=== PATIENT | female | born 1930 | race Caucasian/White ===

== ENCOUNTER 2017-09-08 13:15 | Inpatient (IN) | payer MEDICARE, MEDICAID ==
[~2017-09-08] VITALS: Ht 157.5 cm; Wt 101.2 kg
[2017-09-08] MEDS ORDERED: ONDANSETRON HCL/PF 4 MG/2 ML VIAL ONE ×2 (13:41→14:52)
[2017-09-08 13:50] LABS: BASOPHILS # (AUTO) 0.1 /CMM (0.0-0.2); BASOPHILS % (AUTO) 0.5 % (0.0-2.0); EOSINOPHILS % (AUTO) 0.3 % (0.0-6.0); HEMATOCRIT 34 % (33-45); LYMPHOCYTES # (AUTO) 1.7 /CMM (0.8-4.8); LYMPHOCYTES % (AUTO) 9.5 % (20.0-44.0); MEAN CORPUSCULAR HEMOGLOBIN 34 PG (26.0-33.0); MEAN CORPUSCULAR HGB CONC 35 g/dl (31.0-36.0); MEAN CORPUSCULAR VOLUME 97 fL (82-100); MONOCYTES # (AUTO) 0.9 /CMM (0.1-1.30); MONOCYTES % (AUTO) 4.8 % (2.0-12.0); NEUTROPHILS # (AUTO) 15.1 /CMM (1.8-8.9); NEUTROPHILS % (AUTO) 84.9 % (43.0-81.0); PLATELET COUNT (AUTO) 242 /CMM (150-450); RDW COEFFICIENT OF VARIATION 14.4 (11.5-15.0); RED BLOOD CELL COUNT(AUTO) 3.51 MIL/uL (4.0-5.2); WHITE BLOOD COUNT (AUTO) 17.9 K/uL (4.3-11.0)
[2017-09-08 13:59] LABS: CALCIUM, SERUM 9.6 mg/dL (8.5-10.1); CARBON DIOXIDE 27 mmol/L (21-32); CHLORIDE 105 mmol/L (98-107); GLUCOSE 130 mg/dL (74-106); POTASSIUM 4.5 mmol/L (3.5-5.1); SODIUM SERUM 138 mmol/L (136-145); UREA NITROGEN, BLOOD 25 mg/dL (7-18)
[2017-09-08] MEDS ORDERED: ONDANSETRON HCL/PF 4 MG/2 ML VIAL IVP ONE (14:00)
[2017-09-08 14:08] LABS: TROPONIN I < 0.017 ng/mL (0.00-0.056)
[2017-09-08] MEDS ORDERED: MORPHINE SULFATE INJ 4 MG/ML DISP.SYRIN ONE (14:48)
[2017-09-08] MEDS ORDERED: ONDANSETRON HCL/PF - ER 4 MG/2 ML VIAL IV ONE (15:00)
[2017-09-08] MEDS ORDERED: MORPHINE SULFATE INJ 2 MG/ML DISP.SYRIN IV ONE (15:00)
[2017-09-08] MEDS ORDERED: IV NS 0.9% 500 ML IV ONE (15:00)
[2017-09-08 15:30] LABS: ALBUMIN 3.5 g/dL (3.4-5.0); BILIRUBIN,DIRECT 0.1 mg/dL (0.0-0.2); BILIRUBIN,TOTAL 0.3 mg/dL (0.2-1.0); TOTAL PROTEIN, SERUM 7.2 g/dL (6.4-8.2)
[2017-09-08] MEDS ORDERED: HYDROMORPHONE INJ 2 MG/ML DISP.SYRIN ONE ×2 (15:46→16:20)
[2017-09-08] MEDS ORDERED: ONDANSETRON HCL/PF 4 MG/2 ML VIAL IVP PRN (16:00)
[2017-09-08] MEDS ORDERED: ACETAMINOPHEN 325 MG TABLET PO PRN (16:00)
[2017-09-08] MEDS ORDERED: hydrALAZINE HCL IV 20 MG VIAL IV PRN (16:00)
[2017-09-08] MEDS ORDERED: IV NS 0.9% 1,000 ML IV ONE (16:00)
[2017-09-08] MEDS: HYDROMORPHONE 1 MG/1 ML DISP.SYRIN IV ONE ×2 (16:18→16:26)
[2017-09-08] MEDS ORDERED: ICOS1CAP PO (16:29)
[2017-09-08] MEDS ORDERED: ATOR10TA PO (16:29)
[2017-09-08] MEDS ORDERED: TRAM50TA2 PO (16:29)
[2017-09-08] MEDS ORDERED: UMEC1BLS IH (16:29)
[2017-09-08] MEDS ORDERED: MELO-107 PO (16:29)
[2017-09-08] MEDS ORDERED: ASPI-1152 PO (16:29)
[2017-09-08] MEDS ORDERED: DULO30CA2 PO (16:29)
[2017-09-08] MEDS ORDERED: NEBI5TAB8 PO (16:29)
[2017-09-08] MEDS ORDERED: SPIR25TA6 PO (16:29)
[2017-09-08] MEDS ORDERED: OLME1TAB16 PO (16:29)
[2017-09-08] MEDS ORDERED: PREG75CA PO (16:29)
[2017-09-08] MEDS ORDERED: ERGO500014 PO (16:29)
[2017-09-08 17:30] VITALS: BP 166/82
[2017-09-08] MEDS: IV LR 1000 ML 1,000 ML IV PRN (17:35)
[2017-09-08] MEDS: PANTOPRAZOLE 40 MG VIAL IV SCH (17:38)
[2017-09-08] MEDS: MORPHINE SULFATE INJ 4 MG/ML DISP.SYRIN IV PRN ×2 (17:39→23:34)
[2017-09-08] MEDS ORDERED: DEXTROSE 50%-WATER 50 ML DISP.SYRIN IV PRN (18:00)
[2017-09-08 20:00] VITALS: BP 149/88
[2017-09-08] MEDS: BLOOD SUGAR DIAGNOSTIC 1 EACH STRIP IN SCH (21:44)
[2017-09-08] MEDS: MAGNESIUM HYDROXIDE 30 ML UDC PO PRN (21:44)
[2017-09-08] MEDS: INSULIN REGULAR, HUMAN 100 UNIT/ML 3 ML VIAL SQ PRN (21:49)
[2017-09-09] MEDS: IV LR 1000 ML 1,000 ML IV PRN ×2 (04:59→22:56)
[2017-09-09 06:28] LABS: APPEARANCE,URINE CLEAR (CLEAR); BILIRUBIN,URINE NEGATIVE (NEGATIVE); BLOOD, URINE TRACE-INTA Ery/uL (NEGATIVE); COLOR,URINE YELLOW (YELLOW); KETONES,URINE NEGATIVE (NEGATIVE); LEUKOCYTE ESTERASE ,URINE TRACE (NEGATIVE); NITRITE, URINE NEGATIVE (NEGATIVE); PH,URINE 5.5 (5.0-8.0); PROTEIN,URINE TRACE mg/dl (NEGATIVE); UGLUCOSE NEGATIVE (NEGATIVE); UROBILINOGEN,URINE 0.2 EU/dL (0.2)
[2017-09-09 06:30] LABS: HEMATOCRIT 35 % (33-45); HEMOGLOBIN 11.6 g/dL (11.5-14.8); LYMPHOCYTES # (AUTO) 0.9 /CMM (0.8-4.8); LYMPHOCYTES % (AUTO) 5.9 % (20.0-44.0); MEAN CORPUSCULAR HEMOGLOBIN 33 PG (26.0-33.0); MEAN CORPUSCULAR HGB CONC 33 g/dl (31.0-36.0); MEAN CORPUSCULAR VOLUME 100 fL (82-100); MONOCYTES # (AUTO) 0.8 /CMM (0.1-1.30); NEUTROPHILS # (AUTO) 14.3 /CMM (1.8-8.9); NEUTROPHILS % (AUTO) 89.1 % (43.0-81.0); PLATELET COUNT (AUTO) 255 /CMM (150-450); RDW COEFFICIENT OF VARIATION 15.7 (11.5-15.0); RED BLOOD CELL COUNT(AUTO) 3.52 MIL/uL (4.0-5.2); WHITE BLOOD COUNT (AUTO) 16.1 K/uL (4.3-11.0)
[2017-09-09 06:54] LABS: ALANINE AMINOTRANSFERASE 25 U/L (12-78); ALBUMIN 2.9 g/dL (3.4-5.0); ALKALINE PHOSPHATASE 56 U/L (46-116); ASPARTATE AMINOTRANSFERASE 18 U/L (15-37); BILIRUBIN,DIRECT 0.1 mg/dL (0.0-0.2); BILIRUBIN,TOTAL 0.4 mg/dL (0.2-1.0); CARBON DIOXIDE 28 mmol/L (21-32); CHLORIDE 105 mmol/L (98-107); CREATININE 0.9 mg/dL (0.6-1.3); GLUCOSE 122 mg/dL (74-106); MAGNESIUM 1.8 mg/dL (1.8-2.4); POTASSIUM 4.3 mmol/L (3.5-5.1); SODIUM SERUM 139 mmol/L (136-145); TOTAL PROTEIN, SERUM 6.5 g/dL (6.4-8.2); UREA NITROGEN, BLOOD 26 mg/dL (7-18)
[2017-09-09] MEDS: BLOOD SUGAR DIAGNOSTIC 1 EACH STRIP IN SCH ×4 (06:54→22:44)
[2017-09-09 07:12] LABS: CHOLESTEROL 187 mg/dL (<200); HDL CHOLESTEROL 38 mg/dL (40-60); LDL 132 mg/dL (0-99); THYROID STIMULATING HORMONE 1.083 uIU/mL (0.358-3.74); TRIGLYCERIDES 71 mg/dL (30-150)
[2017-09-09 07:31] LABS: BACTERIA,URINE Few /HPF (None Seen); SQUAMOUS EPITHELIAL CELL,UR Few /HPF (None Seen); WBC,URINE 21-50 /HPF (0-3)
[2017-09-09 08:00] VITALS: BP 145/71
[2017-09-09] MEDS: ASPIRIN EC 81 MG TABLET.DR PO SCH (08:35)
[2017-09-09] MEDS: DULOXETINE HCL 30 MG CAPSULE.DR PO SCH (08:36)
[2017-09-09] MEDS: PREGABALIN 25 MG CAPSULE PO SCH (08:36)
[2017-09-09] MEDS: ATORVASTATIN 10 MG TABLET PO SCH (08:37)
[2017-09-09 08:43] LABS: LIPASE 9624 U/L (73-393)
[2017-09-09] MEDS: MAGNESIUM HYDROXIDE 30 ML UDC PO PRN (08:43)
[2017-09-09] MEDS: PANTOPRAZOLE 40 MG VIAL IV SCH (08:58)
[2017-09-09] MEDS: MORPHINE SULFATE INJ 4 MG/ML DISP.SYRIN IV PRN (08:58)
[2017-09-09] MEDS ORDERED: ENOXAPARIN SODIUM 30 MG/0.3 ML DISP.SYRIN SQ SCH (09:30)
[2017-09-09] MEDS ORDERED: BISACODYL SUPP (10 MG) 10 MG/SUPP.RECT SUPP.RECT RC PRN (09:30)
[2017-09-09] MEDS ORDERED: MAGNESIUM CITRATE 296 ML BOTTLE PO PRN (09:30)
[2017-09-09 09:37] LABS: LYMPHOCYTES % (MANUAL) 3 % (16-48); MONOCYTES % (MANUAL) 4 % (0-11.0); NEUTROPHILS % (MANUAL) 93 (42-76)
[2017-09-09] MEDS ORDERED: CEFTRIAXONE 1 G in IV NS 0.9% 50 ML IV SCH (10:00)
[2017-09-09] MEDS: HYDROMORPHONE INJ 2 MG/ML DISP.SYRIN IV PRN (11:54)
[2017-09-09 16:00] VITALS: BP_SYST 88; BP_SYST 92; BP_DIAS 55; BP_DIAS 60
[2017-09-09] MEDS ORDERED: IV LR 1000 ML 1,000 ML IV ONE (16:00)
[2017-09-09 20:00] VITALS: BP 101/50
[2017-09-10] VITALS (12 sets, daily range): BP systolic 128–147; BP diastolic 49–72
[2017-09-10] MEDS: BLOOD SUGAR DIAGNOSTIC 1 EACH STRIP IN SCH ×4 (06:31→21:11)
[2017-09-10] MEDS: HYDROMORPHONE INJ 2 MG/ML DISP.SYRIN IV PRN ×2 (06:34→18:31)
[2017-09-10 09:08] LABS: HEMATOCRIT 35 % (33-45); HEMOGLOBIN 11.4 g/dL (11.5-14.8); LYMPHOCYTES # (AUTO) 0.9 /CMM (0.8-4.8); LYMPHOCYTES % (AUTO) 3.8 % (20.0-44.0); MEAN CORPUSCULAR HEMOGLOBIN 33 PG (26.0-33.0); MEAN CORPUSCULAR HGB CONC 33 g/dl (31.0-36.0); MEAN CORPUSCULAR VOLUME 100 fL (82-100); MONOCYTES # (AUTO) 1.2 /CMM (0.1-1.30); MONOCYTES % (AUTO) 4.8 % (2.0-12.0); NEUTROPHILS # (AUTO) 22.9 /CMM (1.8-8.9); NEUTROPHILS % (AUTO) 91.4 % (43.0-81.0); PLATELET COUNT (AUTO) 249 /CMM (150-450); RDW COEFFICIENT OF VARIATION 15.8 (11.5-15.0); RED BLOOD CELL COUNT(AUTO) 3.46 MIL/uL (4.0-5.2)
[2017-09-10 09:14] LABS: CALCIUM, SERUM 7.1 mg/dL (8.5-10.1); CARBON DIOXIDE 23 mmol/L (21-32); CHLORIDE 102 mmol/L (98-107); CREATININE 1.6 mg/dL (0.6-1.3); GLUCOSE 90 mg/dL (74-106); POTASSIUM 4.6 mmol/L (3.5-5.1); SODIUM SERUM 136 mmol/L (136-145); UREA NITROGEN, BLOOD 37 mg/dL (7-18)
[2017-09-10 09:47] LABS: BAND % (MANUAL) 2 % (0.0-5.0); LYMPHOCYTES % (MANUAL) 2 % (16-48); MONOCYTES % (MANUAL) 1 % (0-11.0); NEUTROPHILS % (MANUAL) 95 (42-76)
[2017-09-10] MEDS: ASPIRIN EC 81 MG TABLET.DR PO SCH (10:08)
[2017-09-10] MEDS: DULOXETINE HCL 30 MG CAPSULE.DR PO SCH (10:08)
[2017-09-10] MEDS: PREGABALIN 25 MG CAPSULE PO SCH (10:09)
[2017-09-10] MEDS: PANTOPRAZOLE 40 MG VIAL IV SCH (10:09)
[2017-09-10] MEDS: ATORVASTATIN 10 MG TABLET PO SCH (10:09)
[2017-09-10] MEDS ORDERED: IV NS 0.9% 500 ML IV ONE (10:30)
[2017-09-10] MEDS ORDERED: NOREPINEPHRINE 8 MG in IV D5W 500 ML IV PRN (10:30)
[2017-09-10 11:12] LABS: BASOPHILS % (AUTO) 0.1 % (0.0-2.0); HEMATOCRIT 34 % (33-45); HEMOGLOBIN 11.2 g/dL (11.5-14.8); LYMPHOCYTES # (AUTO) 0.8 /CMM (0.8-4.8); LYMPHOCYTES % (AUTO) 2.9 % (20.0-44.0); MEAN CORPUSCULAR HEMOGLOBIN 33 PG (26.0-33.0); MEAN CORPUSCULAR HGB CONC 33 g/dl (31.0-36.0); MEAN CORPUSCULAR VOLUME 100 fL (82-100); MONOCYTES # (AUTO) 0.9 /CMM (0.1-1.30); MONOCYTES % (AUTO) 3.6 % (2.0-12.0); NEUTROPHILS # (AUTO) 24.4 /CMM (1.8-8.9); NEUTROPHILS % (AUTO) 93.4 % (43.0-81.0); PLATELET COUNT (AUTO) 238 /CMM (150-450); RDW COEFFICIENT OF VARIATION 15.6 (11.5-15.0); RED BLOOD CELL COUNT(AUTO) 3.38 MIL/uL (4.0-5.2); WHITE BLOOD COUNT (AUTO) 26.1 K/uL (4.3-11.0)
[2017-09-10] MEDS ORDERED: FEE PK DOSING 1 MIN EA MC ONE (12:46)
[2017-09-10] MEDS: IV LR 1000 ML 1,000 ML IV PRN ×2 (12:47→21:58)
[2017-09-10 13:26] LABS: BAND % (MANUAL) 7 % (0.0-5.0); LYMPHOCYTES % (MANUAL) 4 % (16-48); MONOCYTES % (MANUAL) 4 % (0-11.0); NEUTROPHILS % (MANUAL) 85 (42-76)
[2017-09-10] MEDS: VANCOMYCIN 0.75 GM in IV D5W 250 ML IV SCH (13:58)
[2017-09-10] MEDS: MEROPENEM 500 MG in IV NS 0.9% 50 ML IV SCH (15:03)
[2017-09-10] MEDS: MORPHINE SULFATE INJ 4 MG/ML DISP.SYRIN IV PRN (20:26)
[2017-09-10] MEDS: INSULIN REGULAR, HUMAN 100 UNIT/ML 3 ML VIAL SQ PRN (21:11)
[2017-09-11] VITALS (25 sets, daily range): BP systolic 119–169; BP diastolic 53–78
[2017-09-11] MEDS: MEROPENEM 500 MG in IV NS 0.9% 50 ML IV SCH ×3 (02:44→21:44)
[2017-09-11] MEDS: MORPHINE SULFATE INJ 4 MG/ML DISP.SYRIN IV PRN ×2 (03:24→11:59)
[2017-09-11 05:18] LABS: BASOPHILS % (AUTO) 0.1 % (0.0-2.0); EOSINOPHILS % (AUTO) 0.1 % (0.0-6.0); HEMATOCRIT 31 % (33-45); HEMOGLOBIN 10.2 g/dL (11.5-14.8); LYMPHOCYTES # (AUTO) 0.7 /CMM (0.8-4.8); LYMPHOCYTES % (AUTO) 3.1 % (20.0-44.0); MEAN CORPUSCULAR HEMOGLOBIN 33 PG (26.0-33.0); MEAN CORPUSCULAR HGB CONC 33 g/dl (31.0-36.0); MEAN CORPUSCULAR VOLUME 100 fL (82-100); MONOCYTES # (AUTO) 1.2 /CMM (0.1-1.30); MONOCYTES % (AUTO) 5.3 % (2.0-12.0); NEUTROPHILS # (AUTO) 21.1 /CMM (1.8-8.9); NEUTROPHILS % (AUTO) 91.4 % (43.0-81.0); PLATELET COUNT (AUTO) 220 /CMM (150-450); RDW COEFFICIENT OF VARIATION 15.7 (11.5-15.0); RED BLOOD CELL COUNT(AUTO) 3.07 MIL/uL (4.0-5.2); WHITE BLOOD COUNT (AUTO) 23.1 K/uL (4.3-11.0)
[2017-09-11 05:45] LABS: CALCIUM, SERUM 6.6 mg/dL (8.5-10.1); CARBON DIOXIDE 25 mmol/L (21-32); CHLORIDE 102 mmol/L (98-107); CREATININE 1.5 mg/dL (0.6-1.3); GLUCOSE 92 mg/dL (74-106); LIPASE 560 U/L (73-393); MAGNESIUM 2.6 mg/dL (1.8-2.4); POTASSIUM 4.5 mmol/L (3.5-5.1); SODIUM SERUM 134 mmol/L (136-145); UREA NITROGEN, BLOOD 40 mg/dL (7-18)
[2017-09-11 06:02] LABS: THYROID STIMULATING HORMONE 0.864 uIU/mL (0.358-3.74)
[2017-09-11] MEDS: HYDROMORPHONE INJ 2 MG/ML DISP.SYRIN IV PRN ×2 (06:09→19:10)
[2017-09-11] MEDS: IV LR 1000 ML 1,000 ML IV PRN ×3 (06:16→23:50)
[2017-09-11] MEDS: BLOOD SUGAR DIAGNOSTIC 1 EACH STRIP IN SCH ×4 (08:15→21:57)
[2017-09-11] MEDS: PANTOPRAZOLE 40 MG VIAL IV SCH (08:16)
[2017-09-11] MEDS: PREGABALIN 25 MG CAPSULE PO SCH (08:16)
[2017-09-11] MEDS: ATORVASTATIN 10 MG TABLET PO SCH (08:16)
[2017-09-11] MEDS: DULOXETINE HCL 30 MG CAPSULE.DR PO SCH (08:16)
[2017-09-11] MEDS: ASPIRIN EC 81 MG TABLET.DR PO SCH (08:16)
[2017-09-11] MEDS ORDERED: ERGOCALCIFEROL (VITAMIN D 2) 50,000 UNIT CAPSULE PO SCH (09:00)
[2017-09-11] MEDS: VANCOMYCIN 0.75 GM in IV D5W 250 ML IV SCH (12:03)
[2017-09-12] VITALS (29 sets, daily range): BP systolic 112–179; BP diastolic 65–99
[2017-09-12] MEDS: MEROPENEM 500 MG in IV NS 0.9% 50 ML IV SCH ×2 (02:46→13:46)
[2017-09-12 04:41] LABS: BASOPHILS % (AUTO) 0.2 % (0.0-2.0); EOSINOPHILS % (AUTO) 0.1 % (0.0-6.0); HEMATOCRIT 32 % (33-45); HEMOGLOBIN 10.4 g/dL (11.5-14.8); LYMPHOCYTES # (AUTO) 0.6 /CMM (0.8-4.8); LYMPHOCYTES % (AUTO) 3.3 % (20.0-44.0); MEAN CORPUSCULAR HEMOGLOBIN 33 PG (26.0-33.0); MEAN CORPUSCULAR HGB CONC 33 g/dl (31.0-36.0); MEAN CORPUSCULAR VOLUME 101 fL (82-100); MONOCYTES % (AUTO) 5.2 % (2.0-12.0); NEUTROPHILS # (AUTO) 17.8 /CMM (1.8-8.9); NEUTROPHILS % (AUTO) 91.2 % (43.0-81.0); PLATELET COUNT (AUTO) 238 /CMM (150-450); RDW COEFFICIENT OF VARIATION 15.9 (11.5-15.0); RED BLOOD CELL COUNT(AUTO) 3.13 MIL/uL (4.0-5.2); WHITE BLOOD COUNT (AUTO) 19.5 K/uL (4.3-11.0)
[2017-09-12] MEDS: HYDROMORPHONE INJ 2 MG/ML DISP.SYRIN IV PRN ×2 (04:51→09:41)
[2017-09-12 04:57] LABS: ALANINE AMINOTRANSFERASE 24 U/L (12-78); ALBUMIN 2.4 g/dL (3.4-5.0); ALKALINE PHOSPHATASE 74 U/L (46-116); ASPARTATE AMINOTRANSFERASE 27 U/L (15-37); BILIRUBIN,TOTAL 0.5 mg/dL (0.2-1.0); CALCIUM, SERUM 7.8 mg/dL (8.5-10.1); CARBON DIOXIDE 27 mmol/L (21-32); CHLORIDE 101 mmol/L (98-107); CREATININE 1.4 mg/dL (0.6-1.3); GLUCOSE 101 mg/dL (74-106); LIPASE 166 U/L (73-393); MAGNESIUM 2.4 mg/dL (1.8-2.4); PHOSPHORUS 2.8 mg/dL (2.5-4.9); POTASSIUM 4.3 mmol/L (3.5-5.1); SODIUM SERUM 134 mmol/L (136-145); TOTAL PROTEIN, SERUM 6.5 g/dL (6.4-8.2); UREA NITROGEN, BLOOD 40 mg/dL (7-18)
[2017-09-12 08:11] LABS: CANCER AG, 125 20.5 U/mL (0.0-38.1)
[2017-09-12] MEDS: PREGABALIN 25 MG CAPSULE PO SCH (08:40)
[2017-09-12] MEDS: ATORVASTATIN 10 MG TABLET PO SCH (08:40)
[2017-09-12] MEDS: ASPIRIN EC 81 MG TABLET.DR PO SCH (08:40)
[2017-09-12] MEDS: PANTOPRAZOLE 40 MG VIAL IV SCH (08:40)
[2017-09-12] MEDS: DULOXETINE HCL 30 MG CAPSULE.DR PO SCH (08:40)
[2017-09-12] MEDS: BLOOD SUGAR DIAGNOSTIC 1 EACH STRIP IN SCH ×4 (08:40→22:00)
[2017-09-12] MEDS: IV LR 1000 ML 1,000 ML IV PRN ×2 (08:49→16:46)
[2017-09-12] MEDS ORDERED: CLONIDINE HCL 0.2MG/24H PTWK 1 EA PATCH TD SCH (10:30)
[2017-09-12] MEDS: NITROGLYCERIN 30 GM TUBE TP SCH ×2 (11:43→21:50)
[2017-09-12] MEDS: VANCOMYCIN 0.75 GM in IV D5W 250 ML IV SCH (12:07)
[2017-09-12] MEDS: MORPHINE SULFATE INJ 4 MG/ML DISP.SYRIN IV PRN (20:02)
[2017-09-12] MEDS: FOLIC ACID 1 MG TABLET PO SCH (21:47)
[2017-09-12] MEDS: FERROUS SULFATE (325 MG) 325 MG/TAB TABLET PO SCH (21:47)
[2017-09-12] MEDS: INSULIN REGULAR, HUMAN 100 UNIT/ML 3 ML VIAL SQ PRN (23:22)
[2017-09-13] VITALS (19 sets, daily range): BP systolic 127–178; BP diastolic 54–94
[2017-09-13] MEDS: MEROPENEM 500 MG in IV NS 0.9% 50 ML IV SCH ×2 (01:17→13:32)
[2017-09-13] MEDS: IV LR 1000 ML 1,000 ML IV PRN (02:29)
[2017-09-13 04:33] LABS: EOSINOPHILS % (AUTO) 0.4 % (0.0-6.0); HEMATOCRIT 28 % (33-45); HEMOGLOBIN 9.5 g/dL (11.5-14.8); LYMPHOCYTES # (AUTO) 0.6 /CMM (0.8-4.8); LYMPHOCYTES % (AUTO) 3.3 % (20.0-44.0); MEAN CORPUSCULAR HEMOGLOBIN 34 PG (26.0-33.0); MEAN CORPUSCULAR HGB CONC 34 g/dl (31.0-36.0); MEAN CORPUSCULAR VOLUME 100 fL (82-100); MONOCYTES # (AUTO) 1.3 /CMM (0.1-1.30); MONOCYTES % (AUTO) 6.4 % (2.0-12.0); NEUTROPHILS # (AUTO) 17.6 /CMM (1.8-8.9); NEUTROPHILS % (AUTO) 89.9 % (43.0-81.0); PLATELET COUNT (AUTO) 248 /CMM (150-450); RDW COEFFICIENT OF VARIATION 15.2 (11.5-15.0); RED BLOOD CELL COUNT(AUTO) 2.82 MIL/uL (4.0-5.2); WHITE BLOOD COUNT (AUTO) 19.6 K/uL (4.3-11.0)
[2017-09-13 04:44] LABS: ALANINE AMINOTRANSFERASE 21 U/L (12-78); ALBUMIN 2.2 g/dL (3.4-5.0); ALKALINE PHOSPHATASE 68 U/L (46-116); ASPARTATE AMINOTRANSFERASE 26 U/L (15-37); BILIRUBIN,DIRECT 0.1 mg/dL (0.0-0.2); BILIRUBIN,TOTAL 0.6 mg/dL (0.2-1.0); CALCIUM, SERUM 9.2 mg/dL (8.5-10.1); CARBON DIOXIDE 27 mmol/L (21-32); CHLORIDE 102 mmol/L (98-107); CREATININE 1.3 mg/dL (0.6-1.3); GLUCOSE 95 mg/dL (74-106); LIPASE 95 U/L (73-393); MAGNESIUM 2.2 mg/dL (1.8-2.4); PHOSPHORUS 2.7 mg/dL (2.5-4.9); POTASSIUM 4.2 mmol/L (3.5-5.1); SODIUM SERUM 137 mmol/L (136-145); TOTAL PROTEIN, SERUM 6.1 g/dL (6.4-8.2); UREA NITROGEN, BLOOD 42 mg/dL (7-18)
[2017-09-13 05:58] LABS: LYMPHOCYTES % (MANUAL) 2 % (16-48); MONOCYTES % (MANUAL) 10 % (0-11.0); NEUTROPHILS % (MANUAL) 88 (42-76)
[2017-09-13] MEDS: BLOOD SUGAR DIAGNOSTIC 1 EACH STRIP IN SCH ×4 (08:52→21:45)
[2017-09-13] MEDS: PREGABALIN 25 MG CAPSULE PO SCH (09:26)
[2017-09-13] MEDS: FOLIC ACID 1 MG TABLET PO SCH (09:26)
[2017-09-13] MEDS: ATORVASTATIN 10 MG TABLET PO SCH (09:26)
[2017-09-13] MEDS: PANTOPRAZOLE 40 MG VIAL IV SCH (09:26)
[2017-09-13] MEDS: VALSARTAN 80 MG TABLET PO SCH (09:27)
[2017-09-13] MEDS: ASPIRIN EC 81 MG TABLET.DR PO SCH (09:27)
[2017-09-13] MEDS: FERROUS SULFATE (325 MG) 325 MG/TAB TABLET PO SCH ×2 (09:28→16:56)
[2017-09-13] MEDS: DULOXETINE HCL 30 MG CAPSULE.DR PO SCH (09:28)
[2017-09-13] MEDS: CYANOCOBALAMIN 500 MCG TABLET PO SCH (09:28)
[2017-09-13] MEDS: NITROGLYCERIN 30 GM TUBE TP SCH ×2 (09:41→21:44)
[2017-09-13] MEDS ORDERED: FUROSEMIDE 40 MG/4 ML VIAL IV ONE (11:00)
[2017-09-13] MEDS ORDERED: SIMETHICONE 80 MG TAB.CHEW PO PRN (12:00)
[2017-09-13] MEDS: ENSURE ENLIVE CHOC 237 ML CAN PO SCH ×2 (12:56→16:57)
[2017-09-13] MEDS: VANCOMYCIN 0.75 GM in IV D5W 250 ML IV SCH (13:28)
[2017-09-13] MEDS ORDERED: FEE PK DOSING 1 MIN EA MC ONE (14:47)
[2017-09-13 15:43] LABS: APPEARANCE,URINE CLEAR (CLEAR); BILIRUBIN,URINE NEGATIVE (NEGATIVE); BLOOD, URINE 2+ Ery/uL (NEGATIVE); COLOR,URINE YELLOW (YELLOW); KETONES,URINE NEGATIVE (NEGATIVE); LEUKOCYTE ESTERASE ,URINE NEGATIVE (NEGATIVE); NITRITE, URINE NEGATIVE (NEGATIVE); PH,URINE 5.5 (5.0-8.0); PROTEIN,URINE NEGATIVE (NEGATIVE); UGLUCOSE NEGATIVE (NEGATIVE); UROBILINOGEN,URINE 0.2 EU/dL (0.2)
[2017-09-13 15:47] LABS: BACTERIA,URINE None seen /HPF (None Seen); SQUAMOUS EPITHELIAL CELL,UR Rare /HPF (None Seen); WBC,URINE 0-2 /HPF (0-3)
[2017-09-13] MEDS: MORPHINE SULFATE INJ 4 MG/ML DISP.SYRIN IV PRN (23:03)
[2017-09-14] VITALS: BP_SYST 129; BP_SYST 156; BP_DIAS 67; BP_DIAS 78
[2017-09-14] MEDS: MEROPENEM 500 MG in IV NS 0.9% 50 ML IV SCH ×2 (01:33→13:15)
[2017-09-14 04:00] VITALS: BP 175/76
[2017-09-14 07:14] LABS: CALCIUM, SERUM 9.4 mg/dL (8.5-10.1); CARBON DIOXIDE 29 mmol/L (21-32); CHLORIDE 103 mmol/L (98-107); CREATININE 1.1 mg/dL (0.6-1.3); GLUCOSE 111 mg/dL (74-106); POTASSIUM 3.7 mmol/L (3.5-5.1); SODIUM SERUM 139 mmol/L (136-145); UREA NITROGEN, BLOOD 37 mg/dL (7-18)
[2017-09-14 08:00] VITALS: BP 160/79
[2017-09-14] MEDS: BLOOD SUGAR DIAGNOSTIC 1 EACH STRIP IN SCH ×4 (08:00→21:37)
[2017-09-14] MEDS: ENSURE ENLIVE CHOC 237 ML CAN PO SCH ×3 (08:34→17:59)
[2017-09-14] MEDS ORDERED: VANCOMYCIN 1.25 GM in IV D5W 500 ML IV SCH (09:00)
[2017-09-14] MEDS: ASPIRIN EC 81 MG TABLET.DR PO SCH (09:24)
[2017-09-14] MEDS: DULOXETINE HCL 30 MG CAPSULE.DR PO SCH (09:24)
[2017-09-14] MEDS: PANTOPRAZOLE 40 MG VIAL IV SCH (09:24)
[2017-09-14] MEDS: FERROUS SULFATE (325 MG) 325 MG/TAB TABLET PO SCH ×2 (09:26→16:10)
[2017-09-14] MEDS: VALSARTAN 80 MG TABLET PO SCH (09:26)
[2017-09-14] MEDS: PREGABALIN 25 MG CAPSULE PO SCH (09:26)
[2017-09-14] MEDS: ATORVASTATIN 10 MG TABLET PO SCH (09:26)
[2017-09-14] MEDS: CYANOCOBALAMIN 500 MCG TABLET PO SCH (09:27)
[2017-09-14] MEDS: NITROGLYCERIN 30 GM TUBE TP SCH ×2 (09:30→21:35)
[2017-09-14] MEDS: FOLIC ACID 1 MG TABLET PO SCH (09:32)
[2017-09-14] MEDS: ISOSORBIDE DINITRATE (20MG) 20 MG TABLET PO SCH ×2 (10:56→16:10)
[2017-09-14] MEDS: hydrALAZINE HCL 50 MG TABLET PO SCH ×3 (10:57→16:10)
[2017-09-14 11:44] LABS: BASOPHILS % (AUTO) 0.1 % (0.0-2.0); EOSINOPHILS % (AUTO) 0.4 % (0.0-6.0); HEMATOCRIT 28 % (33-45); HEMOGLOBIN 9.8 g/dL (11.5-14.8); LYMPHOCYTES # (AUTO) 0.9 /CMM (0.8-4.8); LYMPHOCYTES % (AUTO) 4.5 % (20.0-44.0); MEAN CORPUSCULAR HEMOGLOBIN 34 PG (26.0-33.0); MEAN CORPUSCULAR HGB CONC 35 g/dl (31.0-36.0); MEAN CORPUSCULAR VOLUME 98 fL (82-100); MONOCYTES # (AUTO) 1.8 /CMM (0.1-1.30); MONOCYTES % (AUTO) 8.9 % (2.0-12.0); NEUTROPHILS # (AUTO) 17.6 /CMM (1.8-8.9); NEUTROPHILS % (AUTO) 86.1 % (43.0-81.0); PLATELET COUNT (AUTO) 224 /CMM (150-450); RED BLOOD CELL COUNT(AUTO) 2.85 MIL/uL (4.0-5.2); WHITE BLOOD COUNT (AUTO) 20.4 K/uL (4.3-11.0)
[2017-09-14] MEDS: INSULIN REGULAR, HUMAN 100 UNIT/ML 3 ML VIAL SQ PRN ×3 (11:54→21:45)
[2017-09-14 12:00] VITALS: BP 149/89
[2017-09-14 16:00] VITALS: BP 165/90
[2017-09-14 20:00] VITALS: BP 117/58
[2017-09-14 21:19] LABS: AMYLASE 75 U/L (25-115); LIPASE 82 U/L (73-393)
[2017-09-14] MEDS: METOCLOPRAMIDE HCL 10 MG/2 ML VIAL IV SCH (21:31)
[2017-09-15] VITALS: BP 156/67
[2017-09-15] MEDS: MEROPENEM 500 MG in IV NS 0.9% 50 ML IV SCH ×2 (01:52→14:07)
[2017-09-15] MEDS: METOCLOPRAMIDE HCL 10 MG/2 ML VIAL IV SCH ×4 (03:52→21:52)
[2017-09-15 04:00] VITALS: BP 116/76
[2017-09-15 06:25] LABS: CARBON DIOXIDE 33 mmol/L (21-32); CHLORIDE 104 mmol/L (98-107); GLUCOSE 119 mg/dL (74-106); POTASSIUM 3.7 mmol/L (3.5-5.1); SODIUM SERUM 142 mmol/L (136-145); UREA NITROGEN, BLOOD 33 mg/dL (7-18)
[2017-09-15 06:30] LABS: BASOPHILS % (AUTO) 0.1 % (0.0-2.0); HEMATOCRIT 29 % (33-45); LYMPHOCYTES # (AUTO) 0.9 /CMM (0.8-4.8); LYMPHOCYTES % (AUTO) 4.1 % (20.0-44.0); MEAN CORPUSCULAR HEMOGLOBIN 34 PG (26.0-33.0); MEAN CORPUSCULAR HGB CONC 35 g/dl (31.0-36.0); MEAN CORPUSCULAR VOLUME 98 fL (82-100); MONOCYTES # (AUTO) 1.4 /CMM (0.1-1.30); NEUTROPHILS # (AUTO) 20.2 /CMM (1.8-8.9); NEUTROPHILS % (AUTO) 88.8 % (43.0-81.0); PLATELET COUNT (AUTO) 229 /CMM (150-450); RDW COEFFICIENT OF VARIATION 14.6 (11.5-15.0); RED BLOOD CELL COUNT(AUTO) 2.95 MIL/uL (4.0-5.2); WHITE BLOOD COUNT (AUTO) 22.7 K/uL (4.3-11.0)
[2017-09-15 08:00] VITALS: BP 151/73
[2017-09-15] MEDS: ENSURE ENLIVE CHOC 237 ML CAN PO SCH ×3 (08:00→16:28)
[2017-09-15] MEDS: BLOOD SUGAR DIAGNOSTIC 1 EACH STRIP IN SCH ×4 (08:30→21:56)
[2017-09-15] MEDS: CYANOCOBALAMIN 500 MCG TABLET PO SCH (09:00)
[2017-09-15] MEDS: DULOXETINE HCL 30 MG CAPSULE.DR PO SCH (09:00)
[2017-09-15] MEDS: PREGABALIN 25 MG CAPSULE PO SCH (09:00)
[2017-09-15] MEDS: hydrALAZINE HCL 50 MG TABLET PO SCH ×3 (09:00→16:28)
[2017-09-15] MEDS: FERROUS SULFATE (325 MG) 325 MG/TAB TABLET PO SCH ×2 (09:00→16:27)
[2017-09-15] MEDS: ISOSORBIDE DINITRATE (20MG) 20 MG TABLET PO SCH ×2 (09:00→16:28)
[2017-09-15] MEDS: ASPIRIN EC 81 MG TABLET.DR PO SCH (09:00)
[2017-09-15] MEDS: VALSARTAN 80 MG TABLET PO SCH (09:00)
[2017-09-15] MEDS: ATORVASTATIN 10 MG TABLET PO SCH (09:00)
[2017-09-15] MEDS: FOLIC ACID 1 MG TABLET PO SCH (09:00)
[2017-09-15 09:28] LABS: MAGNESIUM 1.5 mg/dL (1.8-2.4); PHOSPHORUS 2.2 mg/dL (2.5-4.9)
[2017-09-15] MEDS: NITROGLYCERIN 30 GM TUBE TP SCH ×2 (09:47→21:53)
[2017-09-15] MEDS: PANTOPRAZOLE 40 MG VIAL IV SCH (09:52)
[2017-09-15] MEDS: HYDROMORPHONE INJ 2 MG/ML DISP.SYRIN IV PRN ×2 (10:57→22:03)
[2017-09-15] MEDS ORDERED: NEUTRA PHOS 1 POWD.PACKET PO ONE (11:00)
[2017-09-15] MEDS: Magnesium 1GM/D5W 100ML PREMIX 100 ML IV SCH ×2 (11:29→12:32)
[2017-09-15 12:00] VITALS: BP 129/68
[2017-09-15 16:00] VITALS: BP 129/66
[2017-09-15 20:00] VITALS: BP 108/53
[2017-09-16] VITALS (7 sets, daily range): BP systolic 103–144; BP diastolic 42–61
[2017-09-16] MEDS: MEROPENEM 500 MG in IV NS 0.9% 50 ML IV SCH ×3 (01:27→22:13)
[2017-09-16] MEDS: METOCLOPRAMIDE HCL 10 MG/2 ML VIAL IV SCH ×4 (02:25→22:12)
[2017-09-16 06:48] LABS: BASOPHILS # (AUTO) 0.1 /CMM (0.0-0.2); BASOPHILS % (AUTO) 0.2 % (0.0-2.0); EOSINOPHILS % (AUTO) 0.5 % (0.0-6.0); HEMATOCRIT 29 % (33-45); HEMOGLOBIN 10.5 g/dL (11.5-14.8); LYMPHOCYTES # (AUTO) 1.3 /CMM (0.8-4.8); LYMPHOCYTES % (AUTO) 4.8 % (20.0-44.0); MEAN CORPUSCULAR HEMOGLOBIN 35 PG (26.0-33.0); MEAN CORPUSCULAR HGB CONC 36 g/dl (31.0-36.0); MEAN CORPUSCULAR VOLUME 97 fL (82-100); MONOCYTES # (AUTO) 2.1 /CMM (0.1-1.30); MONOCYTES % (AUTO) 7.5 % (2.0-12.0); NEUTROPHILS # (AUTO) 24.3 /CMM (1.8-8.9); PLATELET COUNT (AUTO) 244 /CMM (150-450); RDW COEFFICIENT OF VARIATION 15.2 (11.5-15.0); RED BLOOD CELL COUNT(AUTO) 3.04 MIL/uL (4.0-5.2); WHITE BLOOD COUNT (AUTO) 27.9 K/uL (4.3-11.0)
[2017-09-16] MEDS: HYDROMORPHONE INJ 2 MG/ML DISP.SYRIN IV PRN (07:16)
[2017-09-16 07:19] LABS: CALCIUM, SERUM 8.7 mg/dL (8.5-10.1); CARBON DIOXIDE 33 mmol/L (21-32); CHLORIDE 104 mmol/L (98-107); CREATININE 0.9 mg/dL (0.6-1.3); GLUCOSE 102 mg/dL (74-106); LIPASE 113 U/L (73-393); MAGNESIUM 1.8 mg/dL (1.8-2.4); PHOSPHORUS 2.5 mg/dL (2.5-4.9); POTASSIUM 3.7 mmol/L (3.5-5.1); SODIUM SERUM 142 mmol/L (136-145); UREA NITROGEN, BLOOD 28 mg/dL (7-18)
[2017-09-16] MEDS: ENSURE ENLIVE CHOC 237 ML CAN PO SCH ×3 (08:00→17:00)
[2017-09-16] MEDS: BLOOD SUGAR DIAGNOSTIC 1 EACH STRIP IN SCH ×4 (08:18→22:14)
[2017-09-16] MEDS: PANTOPRAZOLE 40 MG VIAL IV SCH (08:54)
[2017-09-16] MEDS: DULOXETINE HCL 30 MG CAPSULE.DR PO SCH (08:55)
[2017-09-16] MEDS: CYANOCOBALAMIN 500 MCG TABLET PO SCH (08:55)
[2017-09-16] MEDS: ATORVASTATIN 10 MG TABLET PO SCH (08:55)
[2017-09-16] MEDS: FOLIC ACID 1 MG TABLET PO SCH (08:55)
[2017-09-16] MEDS: PREGABALIN 25 MG CAPSULE PO SCH (08:55)
[2017-09-16] MEDS: ASPIRIN EC 81 MG TABLET.DR PO SCH (08:55)
[2017-09-16] MEDS: FERROUS SULFATE (325 MG) 325 MG/TAB TABLET PO SCH ×2 (08:56→17:14)
[2017-09-16] MEDS: hydrALAZINE HCL 50 MG TABLET PO SCH ×3 (09:01→17:15)
[2017-09-16] MEDS: ISOSORBIDE DINITRATE (20MG) 20 MG TABLET PO SCH ×2 (09:01→17:15)
[2017-09-16] MEDS: VALSARTAN 80 MG TABLET PO SCH (09:01)
[2017-09-16] MEDS: NITROGLYCERIN 30 GM TUBE TP SCH ×2 (09:17→22:13)
[2017-09-16] MEDS: IV D5/ 0.9% NACL 1,000 ML IV PRN (13:29)
[2017-09-16] MEDS ORDERED: IOHEXOL-300 100 ML VIAL IV ONE (15:23)
[2017-09-16] MEDS ORDERED: IV NS 0.9% 250 ML IV ONE (15:23)
[2017-09-16] MEDS ORDERED: CT SWABBABLE VALVE TRANS SET 1 EA INFUS.SET MC ONE (15:23)
[2017-09-17] VITALS: BP 103/49
[2017-09-17] MEDS: METOCLOPRAMIDE HCL 10 MG/2 ML VIAL IV SCH ×4 (02:44→21:32)
[2017-09-17 04:00] VITALS: BP 120/57
[2017-09-17 07:32] LABS: WHITE BLOOD COUNT (AUTO) 29.5 K/uL (4.3-11.0)
[2017-09-17 07:37] LABS: RED BLOOD CELL COUNT(AUTO) 2.74 MIL/uL (4.0-5.2)
[2017-09-17 07:40] LABS: BASOPHILS % (AUTO) 0.1 % (0.0-2.0); EOSINOPHILS % (AUTO) 0.4 % (0.0-6.0); HEMATOCRIT 27 % (33-45); HEMOGLOBIN 8.9 g/dL (11.5-14.8); LYMPHOCYTES % (AUTO) 2.6 % (20.0-44.0); MEAN CORPUSCULAR HEMOGLOBIN 32 PG (26.0-33.0); MEAN CORPUSCULAR HGB CONC 33 g/dl (31.0-36.0); MEAN CORPUSCULAR VOLUME 98 fL (82-100); MONOCYTES % (AUTO) 6.2 % (2.0-12.0); NEUTROPHILS % (AUTO) 90.7 % (43.0-81.0); PLATELET COUNT (AUTO) 290 /CMM (150-450); RDW COEFFICIENT OF VARIATION 15.5 (11.5-15.0)
[2017-09-17 07:41] LABS: ALANINE AMINOTRANSFERASE 17 U/L (12-78); ALBUMIN 1.7 g/dL (3.4-5.0); ALKALINE PHOSPHATASE 91 U/L (46-116); ASPARTATE AMINOTRANSFERASE 27 U/L (15-37); BILIRUBIN,TOTAL 0.4 mg/dL (0.2-1.0); CALCIUM, SERUM 8.4 mg/dL (8.5-10.1); CARBON DIOXIDE 34 mmol/L (21-32); CHLORIDE 107 mmol/L (98-107); CREATININE 0.8 mg/dL (0.6-1.3); GLUCOSE 122 mg/dL (74-106); LIPASE 125 U/L (73-393); MAGNESIUM 1.7 mg/dL (1.8-2.4); PHOSPHORUS 2.1 mg/dL (2.5-4.9); POTASSIUM 3.5 mmol/L (3.5-5.1); SODIUM SERUM 145 mmol/L (136-145); TOTAL PROTEIN, SERUM 5.7 g/dL (6.4-8.2); UREA NITROGEN, BLOOD 22 mg/dL (7-18)
[2017-09-17 08:00] VITALS: BP 151/57
[2017-09-17] MEDS: ENSURE ENLIVE CHOC 237 ML CAN PO SCH ×3 (08:00→17:00)
[2017-09-17] MEDS: BLOOD SUGAR DIAGNOSTIC 1 EACH STRIP IN SCH ×4 (08:20→21:37)
[2017-09-17] MEDS: DULOXETINE HCL 30 MG CAPSULE.DR PO SCH (09:19)
[2017-09-17] MEDS: VALSARTAN 80 MG TABLET PO SCH (09:20)
[2017-09-17] MEDS: PANTOPRAZOLE 40 MG VIAL IV SCH (09:20)
[2017-09-17] MEDS: hydrALAZINE HCL 50 MG TABLET PO SCH ×3 (09:22→18:18)
[2017-09-17] MEDS: ASPIRIN EC 81 MG TABLET.DR PO SCH (09:23)
[2017-09-17] MEDS: CYANOCOBALAMIN 500 MCG TABLET PO SCH (09:23)
[2017-09-17] MEDS: ATORVASTATIN 10 MG TABLET PO SCH (09:23)
[2017-09-17] MEDS: FERROUS SULFATE (325 MG) 325 MG/TAB TABLET PO SCH ×2 (09:23→18:14)
[2017-09-17] MEDS: ISOSORBIDE DINITRATE (20MG) 20 MG TABLET PO SCH ×2 (09:24→18:19)
[2017-09-17] MEDS: FOLIC ACID 1 MG TABLET PO SCH (09:24)
[2017-09-17] MEDS: NITROGLYCERIN 30 GM TUBE TP SCH ×2 (09:25→21:32)
[2017-09-17] MEDS: PREGABALIN 25 MG CAPSULE PO SCH (09:29)
[2017-09-17] MEDS: Magnesium 1GM/D5W 100ML PREMIX 100 ML IV SCH ×2 (10:47→12:24)
[2017-09-17] MEDS: IV D5/ 0.9% NACL 1,000 ML IV PRN (11:31)
[2017-09-17 12:00] VITALS: BP 119/65
[2017-09-17] MEDS ORDERED: POTASSIUM PHOSPHATE MM 7.5 MMOL in IV D5W 100 ML IV SCH (12:00)
[2017-09-17 16:00] VITALS: BP 125/57
[2017-09-17] MEDS: MEROPENEM 500 MG in IV NS 0.9% 50 ML IV SCH ×2 (16:45→23:36)
[2017-09-17 20:00] VITALS: BP 127/51
[2017-09-18] VITALS: BP 136/65
[2017-09-18] MEDS: HYDROMORPHONE INJ 2 MG/ML DISP.SYRIN IV PRN ×2 (00:16→21:47)
[2017-09-18] MEDS: METOCLOPRAMIDE HCL 10 MG/2 ML VIAL IV SCH ×4 (02:32→21:48)
[2017-09-18 04:00] VITALS: BP 100/55
[2017-09-18] MEDS: IV D5/ 0.9% NACL 1,000 ML IV PRN ×2 (05:32→22:36)
[2017-09-18 06:26] LABS: EOSINOPHILS % (AUTO) 0.6 % (0.0-6.0); HEMATOCRIT 25 % (33-45); HEMOGLOBIN 8.6 g/dL (11.5-14.8); LYMPHOCYTES # (AUTO) 0.8 /CMM (0.8-4.8); LYMPHOCYTES % (AUTO) 2.7 % (20.0-44.0); MEAN CORPUSCULAR HEMOGLOBIN 34 PG (26.0-33.0); MEAN CORPUSCULAR HGB CONC 35 g/dl (31.0-36.0); MEAN CORPUSCULAR VOLUME 97 fL (82-100); MONOCYTES # (AUTO) 1.6 /CMM (0.1-1.30); MONOCYTES % (AUTO) 5.2 % (2.0-12.0); NEUTROPHILS # (AUTO) 27.8 /CMM (1.8-8.9); NEUTROPHILS % (AUTO) 91.5 % (43.0-81.0); PLATELET COUNT (AUTO) 276 /CMM (150-450); RDW COEFFICIENT OF VARIATION 15.1 (11.5-15.0); RED BLOOD CELL COUNT(AUTO) 2.54 MIL/uL (4.0-5.2)
[2017-09-18 06:37] LABS: WHITE BLOOD COUNT (AUTO) 30.4 K/uL (4.3-11.0)
[2017-09-18 06:40] LABS: ALANINE AMINOTRANSFERASE 19 U/L (12-78); ALBUMIN 1.6 g/dL (3.4-5.0); ALKALINE PHOSPHATASE 102 U/L (46-116); ASPARTATE AMINOTRANSFERASE 31 U/L (15-37); BILIRUBIN,TOTAL 0.3 mg/dL (0.2-1.0); CALCIUM, SERUM 7.9 mg/dL (8.5-10.1); CARBON DIOXIDE 36 mmol/L (21-32); CHLORIDE 108 mmol/L (98-107); CREATININE 0.9 mg/dL (0.6-1.3); GLUCOSE 116 mg/dL (74-106); LIPASE 147 U/L (73-393); MAGNESIUM 1.9 mg/dL (1.8-2.4); PHOSPHORUS 2.6 mg/dL (2.5-4.9); POTASSIUM 3.9 mmol/L (3.5-5.1); SODIUM SERUM 146 mmol/L (136-145); TOTAL PROTEIN, SERUM 5.5 g/dL (6.4-8.2); UREA NITROGEN, BLOOD 20 mg/dL (7-18)
[2017-09-18 08:00] VITALS: BP 148/56
[2017-09-18] MEDS: ENSURE ENLIVE CHOC 237 ML CAN PO SCH ×3 (08:00→17:00)
[2017-09-18] MEDS: FOLIC ACID 1 MG TABLET PO SCH (08:53)
[2017-09-18] MEDS: PANTOPRAZOLE 40 MG VIAL IV SCH (08:53)
[2017-09-18] MEDS: hydrALAZINE HCL 50 MG TABLET PO SCH ×3 (08:54→17:33)
[2017-09-18] MEDS: ATORVASTATIN 10 MG TABLET PO SCH (08:55)
[2017-09-18] MEDS: DULOXETINE HCL 30 MG CAPSULE.DR PO SCH (08:55)
[2017-09-18] MEDS: FERROUS SULFATE (325 MG) 325 MG/TAB TABLET PO SCH ×2 (08:55→17:33)
[2017-09-18] MEDS: ISOSORBIDE DINITRATE (20MG) 20 MG TABLET PO SCH ×2 (08:55→17:32)
[2017-09-18] MEDS: ASPIRIN EC 81 MG TABLET.DR PO SCH (08:56)
[2017-09-18] MEDS: CYANOCOBALAMIN 500 MCG TABLET PO SCH (08:56)
[2017-09-18] MEDS: NITROGLYCERIN 30 GM TUBE TP SCH ×2 (08:57→21:49)
[2017-09-18] MEDS: BLOOD SUGAR DIAGNOSTIC 1 EACH STRIP IN SCH ×4 (08:57→21:50)
[2017-09-18] MEDS: PREGABALIN 25 MG CAPSULE PO SCH (09:05)
[2017-09-18] MEDS: MEROPENEM 500 MG in IV NS 0.9% 50 ML IV SCH ×3 (09:12→21:50)
[2017-09-18] MEDS: VALSARTAN 80 MG TABLET PO SCH (09:22)
[2017-09-18 09:44] LABS: ABG BASE EXCESS 11.7 mmol/L; ABG OXYGEN SATURATION 95.5 % (92.0-98.5); ABG PCO2 53.3 mmHg (35.0-45.0); ABG PH 7.459 (7.350-7.450); ABG PO2 77.1 mmHg (75.0-100.0); AaDO2 59.6 mmHg; COHb 0.2 % (0.5-1.5); MetHb 0.6 % (0.0-1.5); O2Hb 94.7 % (94.0-97.0); SITE, ABG Left Brachial; VENT MODE, BG NASAL CANNULA
[2017-09-18 10:40] LABS: BAND % (MANUAL) 2 % (0.0-5.0); LYMPHOCYTES % (MANUAL) 3 % (16-48); MONOCYTES % (MANUAL) 12 % (0-11.0); NEUTROPHILS % (MANUAL) 83 (42-76)
[2017-09-18 12:00] VITALS: BP 130/61
[2017-09-18 16:00] VITALS: BP_SYST 127; BP_SYST 130; BP_DIAS 46; BP_DIAS 61
[2017-09-18 20:00] VITALS: BP 144/84
[2017-09-19] VITALS: BP 118/48
[2017-09-19] MEDS: METOCLOPRAMIDE HCL 10 MG/2 ML VIAL IV SCH ×4 (02:37→21:52)
[2017-09-19 04:00] VITALS: BP 140/53
[2017-09-19] MEDS: HYDROMORPHONE INJ 2 MG/ML DISP.SYRIN IV PRN ×2 (04:59→21:52)
[2017-09-19] MEDS: MEROPENEM 500 MG in IV NS 0.9% 50 ML IV SCH ×3 (06:00→22:17)
[2017-09-19 07:08] LABS: IMMUNOGLOBULIN A, SERUM 359 mg/dL (64-422); IMMUNOGLOBULIN G, SERUM 713 mg/dL (700-1600); IMMUNOGLOBULIN M, SERUM 144 mg/dL (26-217)
[2017-09-19 07:17] LABS: EOSINOPHILS % (AUTO) 0.8 % (0.0-6.0); HEMATOCRIT 25 % (33-45); HEMOGLOBIN 8.9 g/dL (11.5-14.8); LYMPHOCYTES # (AUTO) 1.1 /CMM (0.8-4.8); LYMPHOCYTES % (AUTO) 3.8 % (20.0-44.0); MEAN CORPUSCULAR HEMOGLOBIN 34 PG (26.0-33.0); MEAN CORPUSCULAR HGB CONC 35 g/dl (31.0-36.0); MEAN CORPUSCULAR VOLUME 97 fL (82-100); MONOCYTES # (AUTO) 1.4 /CMM (0.1-1.30); NEUTROPHILS # (AUTO) 25.7 /CMM (1.8-8.9); NEUTROPHILS % (AUTO) 90.4 % (43.0-81.0); PLATELET COUNT (AUTO) 294 /CMM (150-450); RDW COEFFICIENT OF VARIATION 15.1 (11.5-15.0); WHITE BLOOD COUNT (AUTO) 28.4 K/uL (4.3-11.0)
[2017-09-19 07:18] LABS: CALCIUM, SERUM 8.6 mg/dL (8.5-10.1); CARBON DIOXIDE 33 mmol/L (21-32); CHLORIDE 110 mmol/L (98-107); CREATININE 0.8 mg/dL (0.6-1.3); GLUCOSE 111 mg/dL (74-106); MAGNESIUM 1.8 mg/dL (1.8-2.4); PHOSPHORUS 2.8 mg/dL (2.5-4.9); POTASSIUM 4.1 mmol/L (3.5-5.1); SODIUM SERUM 145 mmol/L (136-145); UREA NITROGEN, BLOOD 18 mg/dL (7-18)
[2017-09-19] MEDS: ENSURE ENLIVE CHOC 237 ML CAN PO SCH ×3 (07:53→17:00)
[2017-09-19] MEDS: BLOOD SUGAR DIAGNOSTIC 1 EACH STRIP IN SCH ×4 (07:58→22:13)
[2017-09-19 08:00] VITALS: BP 113/60
[2017-09-19] MEDS: PANTOPRAZOLE 40 MG VIAL IV SCH (08:43)
[2017-09-19] MEDS: ISOSORBIDE DINITRATE (20MG) 20 MG TABLET PO SCH ×2 (08:44→17:00)
[2017-09-19] MEDS: VALSARTAN 80 MG TABLET PO SCH (08:44)
[2017-09-19] MEDS: ASPIRIN EC 81 MG TABLET.DR PO SCH (08:45)
[2017-09-19] MEDS: FERROUS SULFATE (325 MG) 325 MG/TAB TABLET PO SCH ×2 (08:45→17:59)
[2017-09-19] MEDS: PREGABALIN 25 MG CAPSULE PO SCH (08:45)
[2017-09-19] MEDS: FOLIC ACID 1 MG TABLET PO SCH (08:45)
[2017-09-19] MEDS: CYANOCOBALAMIN 500 MCG TABLET PO SCH (08:45)
[2017-09-19] MEDS: hydrALAZINE HCL 50 MG TABLET PO SCH ×3 (08:46→17:00)
[2017-09-19] MEDS: NITROGLYCERIN 30 GM TUBE TP SCH ×2 (08:47→21:53)
[2017-09-19] MEDS: DULOXETINE HCL 30 MG CAPSULE.DR PO SCH (08:49)
[2017-09-19] MEDS: ATORVASTATIN 10 MG TABLET PO SCH (08:49)
[2017-09-19 11:13] LABS: LYMPHOCYTES % (MANUAL) 4 % (16-48); MONOCYTES % (MANUAL) 7 % (0-11.0); NEUTROPHILS % (MANUAL) 89 (42-76)
[2017-09-19 12:00] VITALS: BP 99/52
[2017-09-19 14:12] LABS: *SPE A/G RATIO 0.6 (0.7-1.7); *SPE ALBUMIN 1.8 g/dL (2.9-4.4); *SPE ALPHA-1-GLOBULIN 0.4 g/dL (0.0-0.4); *SPE ALPHA-2-GLOBULIN 0.9 g/dL (0.4-1.0); *SPE BETA GLOBULIN 0.8 g/dL (0.7-1.3); *SPE GLOBULIN, TOTAL 2.8 g/dL (2.2-3.9); *SPE M-SPIKE Not Observed g/dL (Not Observed); *SPEGAMMA GLOBULIN 0.8 g/dL (0.4-1.8)
[2017-09-19] MEDS: IV D5/ 0.9% NACL 1,000 ML IV PRN (15:35)
[2017-09-19 16:00] VITALS: BP 97/55
[2017-09-19 20:00] VITALS: BP 144/59
[2017-09-19] MEDS: INSULIN REGULAR, HUMAN 100 UNIT/ML 3 ML VIAL SQ PRN (22:13)
[2017-09-20] VITALS: BP 116/55
[2017-09-20] MEDS: METOCLOPRAMIDE HCL 10 MG/2 ML VIAL IV SCH ×4 (02:28→20:44)
[2017-09-20] MEDS: IV D5/ 0.9% NACL 1,000 ML IV PRN ×2 (02:32→14:27)
[2017-09-20 04:00] VITALS: BP 115/44
[2017-09-20] MEDS: MEROPENEM 500 MG in IV NS 0.9% 50 ML IV SCH ×3 (06:23→22:11)
[2017-09-20 08:00] VITALS: BP 161/66
[2017-09-20] MEDS: ENSURE ENLIVE CHOC 237 ML CAN PO SCH ×3 (08:00→17:00)
[2017-09-20] MEDS: BLOOD SUGAR DIAGNOSTIC 1 EACH STRIP IN SCH ×4 (08:24→21:25)
[2017-09-20] MEDS: hydrALAZINE HCL 50 MG TABLET PO SCH ×3 (08:34→17:00)
[2017-09-20] MEDS: PANTOPRAZOLE 40 MG VIAL IV SCH (08:34)
[2017-09-20] MEDS: ATORVASTATIN 10 MG TABLET PO SCH (08:34)
[2017-09-20] MEDS: VALSARTAN 80 MG TABLET PO SCH (08:34)
[2017-09-20] MEDS: DULOXETINE HCL 30 MG CAPSULE.DR PO SCH (08:34)
[2017-09-20] MEDS: CYANOCOBALAMIN 500 MCG TABLET PO SCH (08:34)
[2017-09-20] MEDS: PREGABALIN 25 MG CAPSULE PO SCH (08:34)
[2017-09-20] MEDS: FERROUS SULFATE (325 MG) 325 MG/TAB TABLET PO SCH ×2 (08:35→17:13)
[2017-09-20] MEDS: FOLIC ACID 1 MG TABLET PO SCH (08:35)
[2017-09-20] MEDS: ISOSORBIDE DINITRATE (20MG) 20 MG TABLET PO SCH ×2 (08:35→17:00)
[2017-09-20] MEDS: ASPIRIN EC 81 MG TABLET.DR PO SCH (08:35)
[2017-09-20] MEDS: NITROGLYCERIN 30 GM TUBE TP SCH ×2 (08:35→20:44)
[2017-09-20 11:13] LABS: BASOPHILS # (AUTO) 0.2 /CMM (0.0-0.2); BASOPHILS % (AUTO) 0.9 % (0.0-2.0); EOSINOPHILS % (AUTO) 0.9 % (0.0-6.0); HEMATOCRIT 26 % (33-45); HEMOGLOBIN 8.6 g/dL (11.5-14.8); LYMPHOCYTES # (AUTO) 0.9 /CMM (0.8-4.8); LYMPHOCYTES % (AUTO) 3.6 % (20.0-44.0); MEAN CORPUSCULAR HEMOGLOBIN 33 PG (26.0-33.0); MEAN CORPUSCULAR HGB CONC 34 g/dl (31.0-36.0); MEAN CORPUSCULAR VOLUME 99 fL (82-100); MONOCYTES # (AUTO) 1.5 /CMM (0.1-1.30); NEUTROPHILS # (AUTO) 22.2 /CMM (1.8-8.9); NEUTROPHILS % (AUTO) 88.6 % (43.0-81.0); PLATELET COUNT (AUTO) 327 /CMM (150-450); RDW COEFFICIENT OF VARIATION 15.3 (11.5-15.0); RED BLOOD CELL COUNT(AUTO) 2.57 MIL/uL (4.0-5.2)
[2017-09-20 11:14] LABS: CALCIUM, SERUM 8.3 mg/dL (8.5-10.1); CARBON DIOXIDE 32 mmol/L (21-32); CHLORIDE 110 mmol/L (98-107); CREATININE 0.8 mg/dL (0.6-1.3); GLUCOSE 95 mg/dL (74-106); POTASSIUM 4.1 mmol/L (3.5-5.1); SODIUM SERUM 145 mmol/L (136-145); UREA NITROGEN, BLOOD 14 mg/dL (7-18)
[2017-09-20 11:18] LABS: ALANINE AMINOTRANSFERASE 18 U/L (12-78); ALBUMIN 1.5 g/dL (3.4-5.0); ALKALINE PHOSPHATASE 138 U/L (46-116); ASPARTATE AMINOTRANSFERASE 56 U/L (15-37); BILIRUBIN,TOTAL 0.2 mg/dL (0.2-1.0); LIPASE 138 U/L (73-393); MAGNESIUM 1.5 mg/dL (1.8-2.4); PHOSPHORUS 2.4 mg/dL (2.5-4.9); TOTAL PROTEIN, SERUM 5.4 g/dL (6.4-8.2)
[2017-09-20 12:00] VITALS: BP_SYST 122; BP_SYST 126; BP_DIAS 31; BP_DIAS 47
[2017-09-20] MEDS: Magnesium 1GM/D5W 100ML PREMIX 100 ML IV SCH ×2 (14:23→15:52)
[2017-09-20 16:00] VITALS: BP 91/46
[2017-09-20 20:00] VITALS: BP 133/53
[2017-09-20] MEDS: INSULIN REGULAR, HUMAN 100 UNIT/ML 3 ML VIAL SQ PRN (21:25)
[2017-09-20] MEDS: HYDROMORPHONE INJ 2 MG/ML DISP.SYRIN IV PRN (22:17)
[2017-09-21] VITALS (8 sets, daily range): BP systolic 88–133; BP diastolic 40–79
[2017-09-21] MEDS: IV D5/ 0.9% NACL 1,000 ML IV PRN (01:14)
[2017-09-21] MEDS: METOCLOPRAMIDE HCL 10 MG/2 ML VIAL IV SCH ×2 (02:09→09:24)
[2017-09-21] MEDS: MEROPENEM 500 MG in IV NS 0.9% 50 ML IV SCH (06:11)
[2017-09-21 06:58] LABS: EOSINOPHILS % (AUTO) 1.2 % (0.0-6.0); HEMATOCRIT 25 % (33-45); LYMPHOCYTES % (AUTO) 4.9 % (20.0-44.0); MEAN CORPUSCULAR HEMOGLOBIN 32 PG (26.0-33.0); MEAN CORPUSCULAR HGB CONC 32 g/dl (31.0-36.0); MEAN CORPUSCULAR VOLUME 101 fL (82-100); MONOCYTES # (AUTO) 1.4 /CMM (0.1-1.30); MONOCYTES % (AUTO) 6.9 % (2.0-12.0); NEUTROPHILS # (AUTO) 17.4 /CMM (1.8-8.9); PLATELET COUNT (AUTO) 338 /CMM (150-450); RDW COEFFICIENT OF VARIATION 16.3 (11.5-15.0); RED BLOOD CELL COUNT(AUTO) 2.48 MIL/uL (4.0-5.2)
[2017-09-21 07:05] LABS: CALCIUM, SERUM 8.1 mg/dL (8.5-10.1); CARBON DIOXIDE 33 mmol/L (21-32); CHLORIDE 110 mmol/L (98-107); CREATININE 0.8 mg/dL (0.6-1.3); GLUCOSE 110 mg/dL (74-106); MAGNESIUM 1.7 mg/dL (1.8-2.4); PHOSPHORUS 2.2 mg/dL (2.5-4.9); POTASSIUM 3.4 mmol/L (3.5-5.1); SODIUM SERUM 145 mmol/L (136-145); UREA NITROGEN, BLOOD 11 mg/dL (7-18)
[2017-09-21] MEDS: ENSURE ENLIVE CHOC 237 ML CAN PO SCH ×2 (08:00→12:00)
[2017-09-21] MEDS: BLOOD SUGAR DIAGNOSTIC 1 EACH STRIP IN SCH ×2 (08:29→12:34)
[2017-09-21] MEDS: hydrALAZINE HCL 50 MG TABLET PO SCH ×2 (09:00→13:00)
[2017-09-21] MEDS: NITROGLYCERIN 30 GM TUBE TP SCH (09:00)
[2017-09-21] MEDS: VALSARTAN 80 MG TABLET PO SCH (09:00)
[2017-09-21] MEDS: ISOSORBIDE DINITRATE (20MG) 20 MG TABLET PO SCH (09:00)
[2017-09-21] MEDS: FERROUS SULFATE (325 MG) 325 MG/TAB TABLET PO SCH (09:14)
[2017-09-21] MEDS: ATORVASTATIN 10 MG TABLET PO SCH (09:14)
[2017-09-21] MEDS: PREGABALIN 25 MG CAPSULE PO SCH (09:14)
[2017-09-21] MEDS: PANTOPRAZOLE 40 MG VIAL IV SCH (09:14)
[2017-09-21] MEDS: CYANOCOBALAMIN 500 MCG TABLET PO SCH (09:14)
[2017-09-21] MEDS: FOLIC ACID 1 MG TABLET PO SCH (09:14)
[2017-09-21] MEDS: ASPIRIN EC 81 MG TABLET.DR PO SCH (09:14)
[2017-09-21] MEDS: DULOXETINE HCL 30 MG CAPSULE.DR PO SCH (09:24)
[2017-09-21] MEDS ORDERED: POTASSIUM CL. PREMIX PERIPHER. 50 ML IV SCH (09:31)
[2017-09-21] MEDS: Magnesium 1GM/D5W 100ML PREMIX 100 ML IV SCH ×2 (11:30→13:30)
[2017-09-21] MEDS ORDERED: POTASSIUM PHOSPHATE MM 7.5 MMOL in IV D5W 100 ML IV SCH (13:00)
== END 2017-09-21 14:30 | disposition short-term general hospital (02) | DRG 438 ==
LOC: ER 13:18 → MED 16:09 → ICU 09-10 12:39 → TELE1 09-13 14:31
PROVIDERS: ADMIT Nurse Practitioner Acute Care; ATTEND Nurse Practitioner Acute Care
PROC: 02HV33Z Insertion of Infusion Device into Superior Vena Cava, Percutaneous Approach (ICD-10-PCS; principal; 2017-09-10)
PROC: B548ZZA Ultrasonography of Superior Vena Cava, Guidance (ICD-10-PCS; 2017-09-10)
DX: K85.30 Drug induced acute pancreatitis without necrosis or infection (principal); N17.0 Acute kidney failure with tubular necrosis; R65.11 Systemic inflammatory response syndrome (SIRS) of non-infectious origin with acute organ dysfunction; E44.1 Mild protein-calorie malnutrition; N39.0 Urinary tract infection, site not specified; E66.2 Morbid (severe) obesity with alveolar hypoventilation; E87.2 Acidosis; J96.11 Chronic respiratory failure with hypoxia; J96.12 Chronic respiratory failure with hypercapnia; K56.7 Ileus, unspecified; Z68.41 Body mass index [BMI] 40.0-44.9, adult; K65.4 Sclerosing mesenteritis; J90 Pleural effusion, not elsewhere classified; J98.11 Atelectasis; K29.80 Duodenitis without bleeding; K57.90 Diverticulosis of intestine, part unspecified, without perforation or abscess without bleeding; D64.9 Anemia, unspecified; E78.5 Hyperlipidemia, unspecified; J44.9 Chronic obstructive pulmonary disease, unspecified; Z95.0 Presence of cardiac pacemaker; I11.0 Hypertensive heart disease with heart failure; F32.9 Major depressive disorder, single episode, unspecified; E55.9 Vitamin D deficiency, unspecified; K59.00 Constipation, unspecified; I50.9 Heart failure, unspecified; I25.10 Atherosclerotic heart disease of native coronary artery without angina pectoris; C50.912 Malignant neoplasm of unspecified site of left female breast; B95.1 Streptococcus, group B, as the cause of diseases classified elsewhere; D47.2 Monoclonal gammopathy; I95.9 Hypotension, unspecified; T50.2X5A Adverse effect of carbonic-anhydrase inhibitors, benzothiadiazides and other diuretics, initial encounter; T39.395A Adverse effect of other nonsteroidal anti-inflammatory drugs [NSAID], initial encounter; Y92.009 Unspecified place in unspecified non-institutional (private) residence as the place of occurrence of the external cause; D72.829 Elevated white blood cell count, unspecified; G47.33 Obstructive sleep apnea (adult) (pediatric); K76.0 Fatty (change of) liver, not elsewhere classified
CPT/HCPCS: 36415; 36569; 36600; 71045-TC; 74018; 74178; 76700-TC; 76705-TC; 80048-TC; 80053-TC; 80061-TC; 80076-TC; 80202-TC; 81000-TC; 82150-TC; 82232; 82728-TC; 82746; 82784; 82803-TC; 82962-TC; 83540-TC; 83605-TC; 83615-TC; 83690-TC; 83735-TC; 83970; 84100-TC; 84155; 84165; 84443-TC; 84484-TC; 85025-TC; 86140-TC; 86300; 86301; 86304; 86334; 87040-TC; 87081-TC; 87086-TC; 93307-TC; 93971-TC; 97110-TC; 97116-TC; 97530-TC; A4216; A4606; C1751; C9113; J0360; J0696; J1170; J1650; J1815; J1940; J2185; J2270; J2405; J2765; J3370; J3475; J3480; J3490; J7030; J7040; J7042; J7050; J7060; J7070; J7120; Q9967; Z7610

== ENCOUNTER 2020-08-11 02:16 | Emergency (ER) | payer MEDICARE, OTHER ==
[~2020-08-11] VITALS: Ht 152.4 cm; Wt 84.4 kg
[~2020-08-11 02:16] MED LIST: ASPI-1420 PO; ATOR10TA PO; DULO30CA2 PO; ERGO500014 PO; ICOS1CAP PO; NEBI5TAB8 PO; PREG75CA PO; SPIR25TA6 PO; TRAM50TA2 PO; UMEC1BLS IH
--- NOTE | 2020-08-11 02:22 | NUR ---
PT BIBRA C/O SOB AND CHEST TIGHTNESS. PT AAOX4 IVORIAN SPEAKING, DAUGHTER AT BEDSIDE. PT BREATHING EVENLY AND UNLABORED 98% RA. PT ATTACHED TO MONITOR. EMT AT BEDSIDE FOR EKG. RT AC 20G INITIATED. PT GIVEN BLANKET AND CALL LIGHT WITHIN REACH.
--- NOTE | 2020-08-11 02:23 | NUR ---
per daughter, pt takes losartan in the morning, bystolic once at night, and spironolactone every other day
--- NOTE | 2020-08-11 02:33 | NUR ---
BLOOD OBTAINED AND SENT TO LAB
[2020-08-11 02:45] LABS: BASOPHILS # (AUTO) 0.1 /CMM (0.0-0.2); BASOPHILS % (AUTO) 0.5 % (0.0-2.0); EOSINOPHILS % (AUTO) 0.6 % (0.0-6.0); HEMATOCRIT 35 % (33-45); HEMOGLOBIN 11.6 g/dL (11.5-14.8); LYMPHOCYTES # (AUTO) 2.2 /CMM (0.8-4.8); LYMPHOCYTES % (AUTO) 20.4 % (20.0-44.0); MEAN CORPUSCULAR HGB CONC 33 g/dl (31.0-36.0); MEAN CORPUSCULAR VOLUME 100 fL (82-100); MONOCYTES % (AUTO) 9.5 % (2.0-12.0); NEUTROPHILS # (AUTO) 7.5 /CMM (1.8-8.9); PLATELET COUNT (AUTO) 291 /CMM (150-450); RED BLOOD CELL COUNT(AUTO) 3.51 MIL/uL (4.0-5.2); WHITE BLOOD COUNT (AUTO) 10.8 K/uL (4.3-11.0)
[2020-08-11 02:54] LABS: CALCIUM, SERUM 9.4 mg/dL (8.5-10.1); CARBON DIOXIDE 30 mmol/L (21-32); CHLORIDE 106 mmol/L (98-107); GLUCOSE 110 mg/dL (74-106); POTASSIUM 4.7 mmol/L (3.5-5.1); SODIUM SERUM 142 mmol/L (136-145); UREA NITROGEN, BLOOD 38 mg/dL (7-18)
[2020-08-11 03:07] LABS: ALANINE AMINOTRANSFERASE 35 U/L (12-78); ALBUMIN 3.5 g/dL (3.4-5.0); ALKALINE PHOSPHATASE 86 U/L (46-116); ASPARTATE AMINOTRANSFERASE 13 U/L (15-37); BILIRUBIN,DIRECT 0.1 mg/dL (0.0-0.2); BILIRUBIN,TOTAL 0.2 mg/dL (0.2-1.0); NT-PRO BNP 1462 pg/mL (0-125); TOTAL PROTEIN, SERUM 7.4 g/dL (6.4-8.2)
--- NOTE | 2020-08-11 04:43 | NUR ---
bird, daughter home: [phone] cell: [phone]
--- NOTE | 2020-08-11 05:05 | NUR ---
verbal order 40mg ivp lasix.
[2020-08-11] MEDS ORDERED: FUROSEMIDE 40 MG/4 ML VIAL ONE (05:06)
--- NOTE | 2020-08-11 05:21 | NUR ---
Patient discharged to home in stable condition. Written and verbal after care instructions given. Patient verbalizes understanding of instruction. IV removed. Catheter intact and site benign. Pressure and 4x4 applied to site. No bleeding noted. Daughter will arrive for picking machine operator
[2020-08-11] MEDS ORDERED: FUROSEMIDE 40 MG/4 ML VIAL IV ONE (05:30)
[2020-08-11 05:51] VITALS: BP 160/80
== END 2020-08-11 05:30 | disposition home or self-care (01) ==
LOC: ER 02:18
DX: R06.02 Shortness of breath (principal); I10 Essential (primary) hypertension; E78.5 Hyperlipidemia, unspecified; Z95.0 Presence of cardiac pacemaker; Z98.890 Other specified postprocedural states; Z79.82 Long term (current) use of aspirin; Z79.899 Other long term (current) drug therapy
CPT/HCPCS: 36415; 71045; 80048; 80076; 83880; 84484; 85025; 93005; 96374; 99285; J1940